=== PATIENT | female | born 1955 | race Caucasian/White ===

== ENCOUNTER 2017-09-08 13:26 | Inpatient (IN) | payer MEDICARE, OTHER ==
--- NOTE | 2017-09-08 14:20 | ER Document Report ---
ED Medical Screen (RME) - General Chief Complaint: Weakness Stated Complaint: POSSIBLE BUG BITE Time Seen by Provider: 09/08/17 14:12 Notes: 62-year-old female patient visiting from [place] who had a bilateral lung transplant done about a year ago. She noted after arriving here a tick on the arch of her right foot. Her removed it without much difficulty. Brief exam of the foot does not show any sign of retained mouth parts which would suggest the tick had not embedded very well. Late Saturday evening she began to feel poorly and by Saturday felt very weak, nauseous and chills. There is been no fever, no vomiting, but she has had dry heaves. I have greeted and performed a rapid initial assessment of this patient. A comprehensive ED assessment and evaluation of the patient, analysis of test results and completion of the medical decision making process will be conducted by additional ED providers. - Related Data Allergies/Adverse Reactions: Iodinated Contrast- Oral and IV Dye Allergy (Verified 09/08/17 13:31) NSAIDS (Non-Steroidal Anti-Inflamma Allergy (Verified 09/08/17 13:31) adhesive Adverse Reaction (Verified 09/08/17 13:31) kiwi Adverse Reaction (Verified 09/08/17 13:31) Physical Exam - Vital signs Vitals: Temp Pulse Resp BP Pulse Ox 99.5 F 70 16 113/60 97 09/08/17 13:49 09/08/17 13:49 09/08/17 13:49 09/08/17 13:49 09/08/17 13:49 Course - Vital Signs Vital signs: Temp Pulse Resp BP Pulse Ox 99.5 F 70 16 113/60 97 09/08/17 13:49 09/08/17 13:49 09/08/17 13:49 09/08/17 13:49 09/08/17 13:49
[2017-09-08 15:08] LABS: ABSOLUTE BASOPHILS # (AUTO) 0.1 10^3/uL (0.0-0.2); ABSOLUTE LYMPHOCYTES (AUTO) 0.5 10^3/uL (0.5-4.7); ABSOLUTE MONOCYTES (AUTO) 0.6 10^3/uL (0.1-1.4); ABSOLUTE NEUT (AUTO) 8.2 10^3/uL (1.7-8.2); BASOPHILS % (AUTO) 0.7 % (0-2); EOSINOPHILS % (AUTO) 0.2 % (0-6); HEMATOCRIT 31.1 % (36.0-47.0); HEMOGLOBIN 10.3 g/dL (12.0-15.5); LYMPHOCYTES % (AUTO) 5.5 % (13-45); MEAN CORPUSCULAR HEMOGLOBIN 26.9 pg (27.0-33.4); MEAN CORPUSCULAR HGB CONC 33.1 g/dL (32.0-36.0); MEAN CORPUSCULAR VOLUME 81 fl (80-97); MONOCYTES % (AUTO) 6.3 % (3-13); PLATELET COUNT 349 10^3/uL (150-450); RED BLOOD COUNT 3.84 10^6/uL (3.72-5.28); RED CELL DISTRIBUTION WIDTH 19.1 % (11.5-14.0); SEGMENTED NEUTROPHILS % (AUTO) 87.3 % (42-78); TOTAL CELLS COUNTED % (AUTO) 100 %; WHITE BLOOD COUNT 9.4 10^3/uL (4.0-10.5)
[2017-09-08 15:15] LABS: APPEARANCE,URINE SLIGHTLY-CLOUDY; BILIRUBIN,URINE NEGATIVE (NEGATIVE); COLOR,URINE YELLOW; GLUCOSE, URINE NEGATIVE (NEGATIVE); KETONES,URINE NEGATIVE (NEGATIVE); LEUKOCYTE ESTERASE,URINE TRACE (NEGATIVE); NITRITE,URINE NEGATIVE (NEGATIVE); PROTEIN,URINE NEGATIVE (NEGATIVE); URINE SPECIFIC GRAVITY 1.012; UROBILINOGEN,URINE NEGATIVE mg/dL (<2.0)
[2017-09-08 15:30] LABS: ALANINE AMINOTRANSFERASE 25 U/L (9-52); ALBUMIN 3.9 g/dL (3.5-5.0); ALKALINE PHOSPHATASE 122 U/L (38-126); ASPARTATE AMINO TRANSFERASE 34 U/L (14-36); BILIRUBIN,DIRECT 0.3 mg/dL (0.0-0.4); BILIRUBIN,TOTAL 0.8 mg/dL (0.2-1.3); BLOOD UREA NITROGEN 81 mg/dL (7-20); CHLORIDE 81 mmol/L (98-107); GLUCOSE 126 mg/dL (75-110); SODIUM 135.8 mmol/L (137-145); TOTAL PROTEIN 6.8 g/dL (6.3-8.2)
[2017-09-08 15:37] LABS: ANION GAP 16 (5-19); CARBON DIOXIDE 39 mmol/L (22-30)
[2017-09-08 15:39] LABS: POTASSIUM 2.5 mmol/L (3.6-5.0)
--- NOTE | 2017-09-08 16:18 | RADIOLOGY REPORT (SQ) ---
EXAM DESCRIPTION: CHEST 2 VIEWS COMPLETED DATE/TIME: 09/08/2017 4:09 pm REASON FOR STUDY: cough, chills, b/l lung transplant COMPARISON: None. EXAM PARAMETERS: NUMBER OF VIEWS: two views TECHNIQUE: Digital Frontal and Lateral radiographic views of the chest acquired. RADIATION DOSE: NA LIMITATIONS: none FINDINGS: LUNGS AND PLEURA: Left basilar atelectasis with possible left effusion. Right lung is victoria ar. MEDIASTINUM AND HILAR STRUCTURES: No masses or contour abnormalities. HEART AND VASCULAR STRUCTURES: Heart normal size. No evidence for failure. BONES: No acute findings. HARDWARE: Surgical hardware. OTHER: No other significant finding. IMPRESSION: Left basilar atelectasis with possible small left effusion. TECHNICAL DOCUMENTATION: JOB ID: [id number] [employer]- All Rights Reserved Reading location - IP/workstation name: [email or web address]
[2017-09-08 17:21] LABS: A TYPE INFLUENZA AG NEGATIVE (NEGATIVE); B INFLUENZA AG NEGATIVE (NEGATIVE)
[2017-09-08 17:32] LABS: CREATINE KINASE MB 0.62 ng/mL (<4.55)
[2017-09-08 17:33] LABS: ALANINE AMINOTRANSFERASE 24 U/L (9-52); ALKALINE PHOSPHATASE 126 U/L (38-126); ASPARTATE AMINO TRANSFERASE 32 U/L (14-36); BILIRUBIN,DIRECT 0.3 mg/dL (0.0-0.4); BILIRUBIN,TOTAL 0.7 mg/dL (0.2-1.3); BLOOD UREA NITROGEN 78 mg/dL (7-20); CHLORIDE 79 mmol/L (98-107); GLUCOSE 127 mg/dL (75-110); SODIUM 136.5 mmol/L (137-145); TOTAL PROTEIN 6.8 g/dL (6.3-8.2)
[2017-09-08 17:36] LABS: TROPONIN I 0.049 ng/mL
[2017-09-08 17:46] LABS: ANION GAP 14 (5-19)
[2017-09-08 17:47] LABS: POTASSIUM 2.3 mmol/L (3.6-5.0)
[2017-09-08 17:48] LABS: CARBON DIOXIDE 44 mmol/L (22-30)
[2017-09-08] MEDS ORDERED: POTASSIUM CHLORIDE 20 MEQ/15 ML UDCUP PO ONE (18:26)
--- NOTE | 2017-09-08 19:09 | EKG REPORT ---
SEVERITY:- ABNORMAL ECG - SINUS RHYTHM REPOL ABNRM SUGGESTS ISCHEMIA, ANT-LAT LEADS : Confirmed by: Bettie Son 08-Sep-2017 19:08:14
[2017-09-08] MEDS ORDERED: DOXYCYCLINE HYCLATE 100 MG TABLET PO ONE (19:23)
[2017-09-08] MEDS ORDERED: POTASSIUM CHLORIDE 10 MEQ TABLET.SA PO ONE ×2 (19:47→21:34)
--- NOTE | 2017-09-08 19:54 | ER Document Report ---
ED Dizziness/Weakness <HEMANTHERIC - Last Filed: 09/08/17 23:35> - Related Data Home Medications: everolimus, prednisone, tacrolimus, acyclovir, azithromycin, bactrim ds, tylenol, xanax, coreg, zyrtec, lexapro, folic acid, lasix, hctz, protonix, pravachol <ANTOINE BERNAL - Last Filed: 09/09/17 18:47> - General Chief Complaint: Weakness Stated Complaint: POSSIBLE BUG BITE Time Seen by Provider: 09/08/17 14:12 Notes: Patient is a 62-year-old female with a past medical history significant for bilateral lung transplant a year ago with previous moderate rejection on immunosuppression who presents emergency department with a chief complaint of weakness. Patient states that she drove down from [place] with her on Saturday and is feeling weak since Saturday. She admits to nausea. She otherwise denies any cough, shortness of breath, chest pain, vomiting, abdominal pain, diarrhea or constipation. Patient denies any fevers or chills. She also admits that she noticed a tick on the bottom of her foot on Saturday which her removed. Past medical history significant for history of COPD status post bilateral lung transplant, transplant history with previous moderate rejection in November that she was hospitalized for 3 days. Recently diagnosed with RSV in March and was hospitalized, chronic kidney disease, hypertension, GERD Past surgical history significant for bilateral lung transplant July 04, 2016, cholecystectomy, appendectomy Social history: Admits to former tobacco user, or alcohol and denies any drug use. Patient follows with [facility] and [facility]. ( ANTOINE BERNAL) - Related Data Allergies/Adverse Reactions: Iodinated Contrast- Oral and IV Dye Allergy (Verified 09/08/17 13:31) NSAIDS (Non-Steroidal Anti-Inflamma Allergy (Verified 09/08/17 13:31) adhesive Adverse Reaction (Verified 09/08/17 13:31) kiwi Adverse Reaction (Verified 09/08/17 13:31) Past Medical History - Social History Smoking Status: Former Smoker Chew tobacco use (# tins/day): No Frequency of alcohol use: None Drug Abuse: None Family History: Reviewed & Not Pertinent Patient has suicidal ideation: No Patient has homicidal ideation: No - Past Medical History Cardiac Medical History: Reports: Hx Hypertension Pulmonary Medical History: Reports: Hx COPD Renal/ Medical History: Denies: Hx Peritoneal Dialysis GI Medical History: Reports: Hx Gastroesophageal Reflux Disease Past Surgical History: Reports: Hx Appendectomy, Hx Cholecystectomy <ANTOINE BERNAL - Last Filed: 09/09/17 18:47> Review of Systems - Review of Systems Constitutional: See HPI EENT: No symptoms reported Cardiovascular: No symptoms reported Respiratory: No symptoms reported Gastrointestinal: See HPI Musculoskeletal: No symptoms reported Neurological/Psychological: See HPI -: Yes All other systems reviewed and negative <ANTOINE BERNAL - Last Filed: 09/09/17 18:47> Physical Exam <ERIC ERAZO - Last Filed: 09/08/17 23:35> <ANTOINE BERNAL - Last Filed: 09/09/17 18:47> - Vital signs Vitals: Temp Pulse Resp BP Pulse Ox 99.5 F 70 16 113/60 97 09/08/17 13:49 09/08/17 13:49 09/08/17 13:49 09/08/17 13:49 09/08/17 13:49 - Notes Notes: PHYSICAL EXAM GENERAL: Alert, interacts well. HEAD: Normocephalic, atraumatic. EYES: Pupils equal, round, and reactive to light. Extraocular movements intact. ENT: Oral mucosa moist, tongue midline. NECK: Full range of motion. Supple. Trachea midline. LUNGS: Clear to auscultation bilaterally, no wheezes, rales, or rhonchi. No respiratory distress. HEART: Regular rate and rhythm. No murmurs, gallops, or rubs. ABDOMEN: Soft, nondistended, nontender. No guarding, rebound, or rigidity.. Bowel sounds present in all 4 quadrants. EXTREMITIES: Moves all 4 extremities spontaneously. No edema, radial and dorsalis pedis pulses 2/4 bilaterally. No cyanosis. NEUROLOGICAL: Alert and oriented x4. Normal speech. PSYCH: Normal affect, normal mood. SKIN: Warm, dry, normal turgor. No rashes or lesions noted. (ANTOINE BERNAL) Course - Laboratory Result Diagrams: 09/08/17 14:50 09/08/17 20:50 - Diagnostic Test Radiology reviewed: Reports reviewed <ERIC ERAZO - Last Filed: 09/08/17 23:35> - Laboratory Result Diagrams: 09/09/17 04:30 09/09/17 11:10 <ANTOINE BERNAL - Last Filed: 09/09/17 18:47> - Re-evaluation Re-evalutation: 09/08/17 22:[address] Menendez regarding patient's repeat troponin, EKG and potassium level. Recommends consultation with hospitalist for possible observation admission given continued T-wave inversion in anterior leads. 09/08/17 22:30 consulted with hospitalist for possible admission, will come by to evaluate pt 09/08/17 23:35 Dr. Romero does agree to accept patient has a telemetry observation admission. Dr. Romero advised that we do have a copy of patient's most recent chemistry panel as well as last EKG for comparison. (ERIC ERAZO) 09/08/17 19:00 Patient is a 62-year-old female who presents to the emergency department the chief complaint of weakness. Physical exam without any evidence of tick bite, rash. Will treat with prophylactic dose of 200 mg of Doxy. Patient had labs ordered up in triage. Her CBC is stable without evidence of leukocytosis or significant anemia. Patient's chemistry does reveal severe hypokalemia at 2.5. There is no evidence of EKG changes concerning for hypokalemia with U waves. She does have evidence of anterolateral ST depressions. She denies any chest pain. Her troponin was sent at this time which was 0.049. Patient resting comfortably and continues to deny any chest pain. A repeat chemistry was completed to verify hypokalemia which came back at 2.3. Patient was given a p.o. dose of oral potassium given that the department is out of IV potassium. Patient tolerated well without any associated vomiting. Case was reviewed with patient's lung transplant team at [facility] who recommends that as long as she looks well without EKG changes and is tolerating p.o. that she can be discharged and follow-up in the ER for repeat labs tomorrow. We were able to review her labs done at [facility] on a phone vince which showed that hypokalemia is new with a recent potassium 3.5 within the past 7 days. She also has stable kidney function. Her most recent kidney function was consistent with her labs today both on September 02 and September 06. reviewed the case with supervising physician the emergency department Dr. Menendez as well as the patient to agree with plan. Care is been signed over to night nurse practitioner Hemanth who will trend repeat troponin in continue to give her oral replacement of potassium. (ANTOINE BERNAL) - Vital Signs Vital signs: Temp Pulse Resp BP Pulse Ox 98.6 F 67 16 111/51 L 99 09/09/17 14:33 09/09/17 14:33 09/09/17 14:33 09/09/17 11:23 09/09/17 14:33 - Laboratory Laboratory results interpreted by me: 09/08/17 09/08/17 09/08/17 14:50 14:50 14:50 Hgb 10.3 L Hct 31.1 L MCH 26.9 L RDW 19.1 H Seg Neutrophils % 87.3 H Lymphocytes % 5.5 L Sodium 135.8 L Potassium 2.5 L* Chloride 81 L Carbon Dioxide 39 H BUN 81 H Creatinine 3.56 H Est GFR ( Amer) 16 L Est GFR (Non-Af Amer) 13 L Glucose 126 H Ur Leukocyte Esterase TRACE H 09/08/17 09/08/17 17:09 20:50 Hgb Hct MCH RDW Seg Neutrophils % Lymphocytes % Sodium 136.5 L Potassium 2.3 L* 2.7 L* Chloride 79 L Carbon Dioxide 44 H* BUN 78 H Creatinine 3.59 H Est GFR ( Amer) 16 L Est GFR (Non-Af Amer) 13 L Glucose 127 H Ur Leukocyte Esterase 09/08/17 23:36 Labs- Entire Visit 09/08/17 09/08/17 09/08/17 14:50 14:50 14:50 WBC 9.4 RBC 3.84 Hgb 10.3 L Hct 31.1 L MCV 81 MCH 26.9 L MCHC 33.1 RDW 19.1 H Plt Count 349 Seg Neutrophils % 87.3 H Lymphocytes % 5.5 L Monocytes % 6.3 Eosinophils % 0.2 Basophils % 0.7 Absolute Neutrophils 8.2 Absolute Lymphocytes 0.5 Absolute Monocytes 0.6 Absolute Eosinophils 0.0 Absolute Basophils 0.1 Sodium 135.8 L Potassium 2.5 L* Chloride 81 L Carbon Dioxide 39 H Anion Gap 16 BUN 81 H Creatinine 3.56 H Est GFR ( Amer) 16 L Est GFR (Non-Af Amer) 13 L Glucose 126 H Calcium 9.0 Magnesium Total Bilirubin 0.8 Direct Bilirubin 0.3 Neonat Total Bilirubin Not Reportable Neonat Direct Bilirubin Not Reportable Neonat Indirect Bili Not Reportable AST 34 ALT 25 Alkaline Phosphatase 122 Creatine Kinase CK-MB (CK-2) Troponin I Total Protein 6.8 Albumin 3.9 Urine Color YELLOW Urine Appearance SLIGHTLY-CLOUDY Urine pH 5.0 Ur Specific [place] 1.012 Urine Protein NEGATIVE Urine Glucose (UA) NEGATIVE Urine Ketones NEGATIVE Urine Blood NEGATIVE Urine Nitrite NEGATIVE Urine Bilirubin NEGATIVE Urine Urobilinogen NEGATIVE Ur Leukocyte Esterase TRACE H Urine WBC (Auto) 5 Urine RBC (Auto) 1 U Hyaline Cast (Auto) 45 Urine Bacteria (Auto) TRACE Squamous Epi Cells Auto 3 Urine Mucus (Auto) RARE Urine Ascorbic Acid NEGATIVE Influenza A (Rapid) Influenza B (Rapid) 09/08/17 09/08/17 09/08/17 14:50 14:50 16:40 WBC RBC Hgb Hct MCV MCH MCHC RDW Plt Count Seg Neutrophils % Lymphocytes % Monocytes % Eosinophils % Basophils % Absolute Neutrophils Absolute Lymphocytes Absolute Monocytes Absolute Eosinophils Absolute Basophils Sodium Potassium Chloride Carbon Dioxide Anion Gap BUN Creatinine Est GFR ( Amer) Est GFR (Non-Af Amer) Glucose Calcium Magnesium Total Bilirubin Direct Bilirubin Neonat Total Bilirubin Neonat Direct Bilirubin Neonat Indirect Bili AST ALT Alkaline Phosphatase Creatine Kinase 103 CK-MB (CK-2) 0.62 Troponin I 0.049 Total Protein Albumin Urine Color Urine Appearance Urine pH Ur Specific [place] Urine Protein Urine Glucose (UA) Urine Ketones Urine Blood Urine Nitrite Urine Bilirubin Urine Urobilinogen Ur Leukocyte Esterase Urine WBC (Auto) Urine RBC (Auto) U Hyaline Cast (Auto) Urine Bacteria (Auto) Squamous Epi Cells Auto Urine Mucus (Auto) Urine Ascorbic Acid Influenza A (Rapid) NEGATIVE Influenza B (Rapid) NEGATIVE 09/08/17 09/08/17 09/08/17 17:09 17:09 20:50 WBC RBC Hgb Hct MCV MCH MCHC RDW Plt Count Seg Neutrophils % Lymphocytes % Monocytes % Eosinophils % Basophils % Absolute Neutrophils Absolute Lymphocytes Absolute Monocytes Absolute Eosinophils Absolute Basophils Sodium 136.5 L Potassium 2.3 L* Chloride 79 L Carbon Dioxide 44 H* Anion Gap 14 BUN 78 H Creatinine 3.59 H Est GFR ( Amer) 16 L Est GFR (Non-Af Amer) 13 L Glucose 127 H Calcium 9.0 Magnesium 2.2 Total Bilirubin 0.7 Direct Bilirubin 0.3 Neonat Total Bilirubin Not Reportable Neonat Direct Bilirubin Not Reportable Neonat Indirect Bili Not Reportable AST 32 ALT 24 Alkaline Phosphatase 126 Creatine Kinase CK-MB (CK-2) Troponin I 0.041 Total Protein 6.8 Albumin 4.0 Urine Color Urine Appearance Urine pH Ur Specific [place] Urine Protein Urine Glucose (UA) Urine Ketones Urine Blood Urine Nitrite Urine Bilirubin Urine Urobilinogen Ur Leukocyte Esterase Urine WBC (Auto) Urine RBC (Auto) U Hyaline Cast (Auto) Urine Bacteria (Auto) Squamous Epi Cells Auto Urine Mucus (Auto) Urine Ascorbic Acid Influenza A (Rapid) Influenza B (Rapid) 09/08/17 20:50 WBC RBC Hgb Hct MCV MCH MCHC RDW Plt Count Seg Neutrophils % Lymphocytes % Monocytes % Eosinophils % Basophils % Absolute Neutrophils Absolute Lymphocytes Absolute Monocytes Absolute Eosinophils Absolute Basophils Sodium Potassium 2.7 L* Chloride Carbon Dioxide Anion Gap BUN Creatinine Est GFR ( Amer) Est GFR (Non-Af Amer) Glucose Calcium Magnesium Total Bilirubin Direct Bilirubin Neonat Total Bilirubin Neonat Direct Bilirubin Neonat Indirect Bili AST ALT Alkaline Phosphatase Creatine Kinase CK-MB (CK-2) Troponin I Total Protein Albumin Urine Color Urine Appearance Urine pH Ur Specific [place] Urine Protein Urine Glucose (UA) Urine Ketones Urine Blood Urine Nitrite Urine Bilirubin Urine Urobilinogen Ur Leukocyte Esterase Urine WBC (Auto) Urine RBC (Auto) U Hyaline Cast (Auto) Urine Bacteria (Auto) Squamous Epi Cells Auto Urine Mucus (Auto) Urine Ascorbic Acid Influenza A (Rapid) Influenza B (Rapid) (ERIC ERAZO) Discharge - Discharge Admitting Provider: Hospitalist Unit Admitted: Telemetry <ERIC ERAZO - Last Filed: 09/08/17 23:35> <ANTOINE BERNAL - Last Filed: 09/09/17 18:47> - Discharge Clinical Impression: Hypokalemia, Abnormal EKG, Nausea Condition: Fair Disposition: ADMITTED OBSERVATION
--- NOTE | 2017-09-08 22:31 | EKG REPORT ---
SEVERITY:- ABNORMAL ECG - SINUS RHYTHM NONSPECIFIC INTRAVENTRICULAR CONDUCTION DELAY BORDERLINE ST DEPRESSION, ANTERIOR LEADS : Confirmed by: Bettie Son 08-Sep-2017 22:31:11
[2017-09-08] MEDS ORDERED: ONDANSETRON 4 MG TAB.RAPDIS PO ONE (22:42)
[2017-09-08] MEDS ORDERED: DIPHENHYDRAMINE HCL 50 MG/ML VIAL IV ONE (22:51)
[2017-09-08] MEDS ORDERED: ACETAMINOPHEN 325 MG TABLET PO PRN (23:28)
[2017-09-08] MEDS ORDERED: PROMETHAZINE HCL INJ 25 MG/1 ML VIAL IV PRN (23:28)
[2017-09-08] MEDS ORDERED: POTASSI CL 40 MEQ/NS 1L 1,000 ML IV PRN (23:36)
--- NOTE | 2017-09-09 00:38 | PDOC H&P ---
History of Present Illness Admission Date/PCP: 09/08/17 23:41 History of Present Illness: LEIGHTON ALSTON is a 62 year old female patient with past medical history of end-stage renal disease secondary to COPD and status post bilateral lung transplant which was done in 2017 at [facility]. Patient has also end- stage renal disease and currently she is in.transplant waiting list. She presented with 3 days history of generalized body weakness and nausea. Her blood work shows hypokalemia with potassium of 2.3. Patient denies vomiting, diarrhea, abdominal pain, fever, chills, chest pain, cough or urinary complaints. Her EKG shows nonspecific T-wave inversions which are new compared to previous EKG. Past Medical History Cardiac Medical History: Reports: Hypertension Pulmonary Medical History: Reports: Chronic Obstructive Pulmonary Disease (COPD) GI Medical History: Reports: Gastroesophageal Reflux Disease Past Surgical History Past Surgical History: Reports: Appendectomy, Cholecystectomy, Other - Bilateral lung transplant Social History Smoking Status: Former Smoker - Advance Directive Resuscitation Status: Full Code Family History Family History: Malignancy Parental Family History Reviewed: Yes Children Family History Reviewed: Yes Sibling(s) Family History Reviewed.: Yes Medication/Allergy Home Medications: Potassium Chloride 40 meq PO DAILY 7 Days tablet.er 09/08/17 Allergies/Adverse Reactions: Iodinated Contrast- Oral and IV Dye Allergy (Verified 09/08/17 13:31) NSAIDS (Non-Steroidal Anti-Inflamma Allergy (Verified 09/08/17 13:31) adhesive Adverse Reaction (Verified 09/08/17 13:31) kiwi Adverse Reaction (Verified 09/08/17 13:31) Review of Systems Constitutional: PRESENT: as per HPI Eyes: PRESENT: as per HPI Cardiovascular: PRESENT: as per HPI Respiratory: PRESENT: as per HPI Gastrointestinal: PRESENT: as per HPI Neurological: PRESENT: as per HPI Psychiatric: PRESENT: as per HPI Physical Exam Vital Signs: Temp Pulse Resp BP Pulse Ox 99.5 F 70 14 118/60 100 09/08/17 13:49 09/08/17 13:49 09/08/17 21:07 09/08/17 21:07 09/08/17 21:07 Results Impressions: Chest X-Ray 09/08/17 15:50 IMPRESSION: Left basilar atelectasis with possible small left effusion. Assessment & Plan - Diagnosis (1) Hypokalemia Is this a current diagnosis for this admission?: Yes Plan: I will replete her potassium. BMP in a.m. (2) End stage renal disease Is this a current diagnosis for this admission?: Yes Plan: Follow-up with her dairy chemist (3) Abnormal EKG Is this a current diagnosis for this admission?: Yes Plan: Her troponin is negative. Consult cardiology (4) Hyperlipidemia Qualifiers: Hyperlipidemia type: unspecified Qualified Code(s): E78.5 - Hyperlipidemia , unspecified Is this a current diagnosis for this admission?: Yes Plan: Continue her home medications - Time Time Spent: 30 to 50 Minutes - Inpatient Certification Medical Necessity: Need For IV Fluids
[2017-09-09] MEDS ORDERED: ONDANSETRON HCL INJ/PF 4 MG/2 ML SDV IV PRN (02:18)
[2017-09-09 02:31] LABS: ARTERIAL BLOOD BASE EXCESS 10.9 mmol/L; ARTERIAL BLOOD H2CO3 1.26 mmol/L (1.05-1.35); ARTERIAL BLOOD HCO3 34.5 mmol/L (20-26); ARTERIAL BLOOD O2 SATURATION 85.4 % (94-98); ARTERIAL BLOOD PCO2 41.8 mmHg (35-45); ARTERIAL BLOOD PH 7.54 (7.35-7.45); ARTERIAL BLOOD PO2 44.4 mmHg (80-100); ARTERIAL BLOOD TOTAL CO2 35.8 mmol/L (21-25)
[2017-09-09 02:34] LABS: ARTERIAL BLOOD FIO2 21%
[2017-09-09 05:33] LABS: ABSOLUTE BASOPHILS # (AUTO) 0.1 10^3/uL (0.0-0.2); ABSOLUTE EOSINOPHILS # (AUTO) 0.1 10^3/uL (0.0-0.6); ABSOLUTE LYMPHOCYTES (AUTO) 0.9 10^3/uL (0.5-4.7); BASOPHILS % (AUTO) 0.9 % (0-2); HEMATOCRIT 24.9 % (36.0-47.0); HEMOGLOBIN 8.4 g/dL (12.0-15.5); LYMPHOCYTES % (AUTO) 14.7 % (13-45); MEAN CORPUSCULAR HEMOGLOBIN 27.6 pg (27.0-33.4); MEAN CORPUSCULAR HGB CONC 33.9 g/dL (32.0-36.0); MEAN CORPUSCULAR VOLUME 82 fl (80-97); MONOCYTES % (AUTO) 16.1 % (3-13); PLATELET COUNT 253 10^3/uL (150-450); RED BLOOD COUNT 3.05 10^6/uL (3.72-5.28); RED CELL DISTRIBUTION WIDTH 18.8 % (11.5-14.0); SEGMENTED NEUTROPHILS % (AUTO) 67.3 % (42-78); TOTAL CELLS COUNTED % (AUTO) 100 %
[2017-09-09 05:57] LABS: ANION GAP 11 (5-19); BLOOD UREA NITROGEN 86 mg/dL (7-20); CALCIUM 8.4 mg/dL (8.4-10.2); CARBON DIOXIDE 37 mmol/L (22-30); CHLORIDE 89 mmol/L (98-107); GLUCOSE 162 mg/dL (75-110); SODIUM 136.9 mmol/L (137-145)
[2017-09-09] MEDS ORDERED: LANSOPRAZOLE 30 MG TAB.RAP.DR PO SCH (06:00)
[2017-09-09 06:15] LABS: POTASSIUM 2.5 mmol/L (3.6-5.0)
[2017-09-09] MEDS ORDERED: POTASSI CL 40 MEQ/NS 1L 1,000 ML IV PRN (06:30)
[2017-09-09] MEDS: HEPARIN SOD (PORCINE) 5,000 UNIT/ML 1 ML SYRINGE SUBCUT SCH ×2 (06:57→13:11)
[2017-09-09] MEDS ORDERED: POTASSIUM CHLORIDE 10 MEQ TABLET.SA PO ONE (07:00)
--- NOTE | 2017-09-09 09:19 | PDOC PROGRESS REPORT ---
Subjective Progress Note for:: 09/09/17 Subjective:: Patient is seen resting in bed. Her is at the bedside. She denies any chest pain, shortness of breath or dyspnea. She denies any nausea, vomiting, diarrhea or abdominal pain. Her appetite is improved. She is drinking well. She denies any significant arthralgias or myalgias. Remaining review of systems are negative. Reason For Visit: HYPOKALEMIA Physical Exam Vital Signs: Temp Pulse Resp BP Pulse Ox 99.7 F 59 L 18 97/77 L 100 09/09/17 01:25 09/09/17 07:00 09/09/17 01:25 09/09/17 01:25 09/09/17 01:25 Intake & Output 09/08/17 09/09/17 09/10/17 06:59 06:59 06:59 Intake Total 1222 Balance 1222 General appearance: PRESENT: no acute distress, well-developed, well-nourished Head exam: PRESENT: atraumatic, normocephalic Eye exam: PRESENT: conjunctiva pink, EOMI, PERRLA. ABSENT: scleral icterus Ear exam: PRESENT: normal external ear exam Mouth exam: PRESENT: moist, tongue midline Neck exam: ABSENT: carotid bruit, JVD, lymphadenopathy, thyromegaly Respiratory exam: PRESENT: clear to auscultation alma. ABSENT: rales, rhonchi, wheezes Cardiovascular exam: PRESENT: RRR. ABSENT: diastolic murmur, rubs, systolic murmur Pulses: PRESENT: normal dorsalis pedis pul Vascular exam: PRESENT: normal capillary refill GI/Abdominal exam: PRESENT: normal bowel sounds, soft. ABSENT: distended, guarding, mass, organolmegaly, rebound, tenderness Rectal exam: PRESENT: deferred Extremities exam: PRESENT: full ROM. ABSENT: calf tenderness, clubbing, pedal edema Neurological exam: PRESENT: alert, awake, oriented to person, oriented to place , oriented to time, oriented to situation, CN II-XII grossly intact. ABSENT: motor sensory deficit Psychiatric exam: PRESENT: appropriate affect, normal mood. ABSENT: homicidal ideation, suicidal ideation Skin exam: PRESENT: dry, intact, warm. ABSENT: cyanosis, rash Results Laboratory Results: 09/09/17 04:30 09/09/17 04:30 0509/09/17 09/09/17 23:45 02:19 04:30 WBC 6.0 RBC 3.05 L Hgb 8.4 L Hct 24.9 L MCV 82 MCH 27.6 MCHC 33.9 RDW 18.8 H Plt Count 253 Seg Neutrophils % 67.3 Lymphocytes % 14.7 Monocytes % 16.1 H Eosinophils % 1.0 Basophils % 0.9 Absolute Neutrophils 4.0 Absolute Lymphocytes 0.9 Absolute Monocytes 1.0 Absolute Eosinophils 0.1 Absolute Basophils 0.1 Carbonic Acid 1.26 HCO3/H2CO3 Ratio 27:1 ABG pH 7.54 H ABG pCO2 41.8 ABG pO2 44.4 L ABG HCO3 34.5 H ABG O2 Saturation 85.4 L ABG Base Excess 10.9 FiO2 21% Sodium Potassium 2.5 L* Chloride Carbon Dioxide Anion Gap BUN Creatinine Est GFR ( Amer) Est GFR (Non-Af Amer) Glucose Calcium 09/09/17 04:30 WBC RBC Hgb Hct MCV MCH MCHC RDW Plt Count Seg Neutrophils % Lymphocytes % Monocytes % Eosinophils % Basophils % Absolute Neutrophils Absolute Lymphocytes Absolute Monocytes Absolute Eosinophils Absolute Basophils Carbonic Acid HCO3/H2CO3 Ratio ABG pH ABG pCO2 ABG pO2 ABG HCO3 ABG O2 Saturation ABG Base Excess FiO2 Sodium 136.9 L Potassium 2.5 L* Chloride 89 L Carbon Dioxide 37 H Anion Gap 11 BUN 86 H Creatinine 3.32 H Est GFR ( Amer) 17 L Est GFR (Non-Af Amer) 14 L Glucose 162 H Calcium 8.4 09/08/17 23:45 Troponin I 0.040 Impressions: Chest X-Ray 09/08/17 15:50 IMPRESSION: Left basilar atelectasis with possible small left effusion. Assessment & Plan - Diagnosis (1) Hypokalemia Is this a current diagnosis for this admission?: Yes Plan: Replete with oral and IV potassium, recheck at 10 AM (2) Abnormal EKG Is this a current diagnosis for this admission?: Yes Plan: Cardiology has been consulted. Most likely secondary to hypokalemia. She denies any cardiac history. She denies any chest pain, shortness of breath or any other anginal equivalents (3) End stage renal disease Is this a current diagnosis for this admission?: Yes (4) Nausea Is this a current diagnosis for this admission?: Yes Plan: Resolved presently (5) Lung transplant recipient Is this a current diagnosis for this admission?: Yes Plan: Patient received bilateral lung transplant 2016. Continue antirejection medications - Time Time Spent with patient: 15-24 minutes Medications reviewed and adjusted accordingly: Yes Anticipated discharge: Home Within: within 24 hours
[2017-09-09] MEDS ORDERED: DOCUSATE SODIUM 100 MG CAPSULE PO SCH (10:00)
[2017-09-09 11:58] LABS: BLOOD UREA NITROGEN 76 mg/dL (7-20); CALCIUM 8.6 mg/dL (8.4-10.2); CHLORIDE 93 mmol/L (98-107); GLUCOSE 144 mg/dL (75-110)
[2017-09-09 12:05] LABS: ANION GAP 9 (5-19)
[2017-09-09 12:09] LABS: CARBON DIOXIDE 39 mmol/L (22-30); POTASSIUM 3.6 mmol/L (3.6-5.0)
[2017-09-09 12:27] VITALS: BP 111/51
[2017-09-09] MEDS ORDERED: ALPRAZOLAM 0.25 MG TABLET PO PRN (13:52)
[2017-09-09] MEDS ORDERED: AZITHROMYCIN 250 MG TABLET PO SCH (14:00)
--- NOTE | 2017-09-09 14:45 | PDOC DISCHARGE SUMMARY ---
General - Admit/Disc Date/PCP Admission Date/Primary Care Provider: 09/08/17 23:41 Discharge Date: 09/09/17 - Discharge Diagnosis (1) Hypokalemia Is this a current diagnosis for this admission?: Yes Summary: Repleted and normal. Will hold diuretics until Wed (2) Abnormal EKG Is this a current diagnosis for this admission?: Yes Summary: Secondary to hypokalemia (3) End stage renal disease Is this a current diagnosis for this admission?: Yes Summary: Improved with IV hydration. At her baseline (4) Nausea Is this a current diagnosis for this admission?: Yes Summary: Resolved (5) Lung transplant recipient Is this a current diagnosis for this admission?: Yes Summary: Continue prograf - Additional Information Resuscitation Status: Full Code Discharge Diet: Cardiac, Diabetic Discharge Activity: Activity As Tolerated, Balance Activity w/Rest Home Medications: Acetaminophen [Tylenol 325 mg Tablet] 650 mg PO Q6HP PRN 09/09/17 Acyclovir [Zovirax 200 mg Capsule] 200 mg PO TID 09/09/17 Alprazolam [Xanax 0.25 mg Tablet] 0.25 mg PO DAILYP PRN 09/09/17 Carvedilol [Coreg 25 mg Tablet] 50 mg PO BIDBS 09/09/17 Cetirizine HCl [Zyrtec 10 mg Tablet] 10 mg PO DAILY 09/09/17 Escitalopram Oxalate [Lexapro 10 mg Tablet] 10 mg PO DAILY 09/09/17 Everolimus [Zortress] 0.25 mg PO QPM 09/09/17 Everolimus [Zortress] 0.5 mg PO DAILY 09/09/17 Folic Acid [Folvite 1 mg Tablet] 1 mg PO DAILY 09/09/17 Furosemide [Lasix 40 mg Tablet] 40 mg PO DAILY #0 09/09/17 Hydrochlorothiazide [Hydrodiuril 25 mg Tablet] 50 mg PO DAILY #0 09/09/17 Pantoprazole Sodium [Protonix] 40 mg PO DAILY 09/09/17 Pravastatin Sodium [Pravachol] 20 mg PO DAILY 09/09/17 Prednisone [Deltasone 5 mg Tablet] 5 mg PO [id number] 09/09/17 Tacrolimus [Prograf] 0.5 mg PO QPM 09/09/17 Tacrolimus [Prograf] 1 mg PO DAILY 09/09/17 History of Present Illness Patient complains of: Weakness and nausea History of Present Illness: LEIGHTON ALSTON is a 62 year old female Hospital Course Hospital Course: LEIGHTON ALSTON is a 62 year old female patient with past medical history of end-stage renal disease secondary to COPD and status post bilateral lung transplant which was done in 2017 at [facility]. Patient has also end- stage renal disease and currently she is in.transplant waiting list. She presented with 3 days history of generalized body weakness and nausea. Her blood work shows hypokalemia with potassium of 2.3. Patient denies vomiting, diarrhea, abdominal pain, fever, chills, chest pain, cough or urinary complaints. Her EKG shows nonspecific T-wave inversions which are new compared to previous EKG Her potassium was repleted with oral and IV therapy. Her repeat potassium came back at 3.6. Her appetite is improved. She is eating and drinking without any difficulty. We have held her oral diuretic therapy and have encouraged her to do so until Saturday. Encouraged her to continue to attempt to consume potassium rich foods taking diuretics. She will follow up with her primary care provider when she returns to [place]. Physical Exam Vital Signs: Temp Pulse Resp BP Pulse Ox 98.6 F 67 16 111/51 L 99 09/09/17 11:23 09/09/17 14:00 09/09/17 11:23 09/09/17 11:23 09/09/17 11:23 Intake & Output 09/08/17 09/09/17 09/10/17 06:59 06:59 06:59 Intake Total 1222 Balance 1222 General appearance: PRESENT: no acute distress, well-developed, well-nourished Head exam: PRESENT: atraumatic, normocephalic Eye exam: PRESENT: conjunctiva pink, EOMI, PERRLA. ABSENT: scleral icterus Ear exam: PRESENT: normal external ear exam Mouth exam: PRESENT: moist, tongue midline Neck exam: ABSENT: carotid bruit, JVD, lymphadenopathy, thyromegaly Respiratory exam: PRESENT: clear to auscultation alma. ABSENT: rales, rhonchi, wheezes Cardiovascular exam: PRESENT: RRR. ABSENT: diastolic murmur, rubs, systolic murmur Pulses: PRESENT: normal dorsalis pedis pul Vascular exam: PRESENT: normal capillary refill GI/Abdominal exam: PRESENT: normal bowel sounds, soft. ABSENT: distended, guarding, mass, organolmegaly, rebound, tenderness Rectal exam: PRESENT: deferred Extremities exam: PRESENT: full ROM. ABSENT: calf tenderness, clubbing, pedal edema Musculoskeletal exam: PRESENT: ambulatory, full ROM, normal inspection Neurological exam: PRESENT: alert, awake, oriented to person, oriented to place , oriented to time, oriented to situation, CN II-XII grossly intact. ABSENT: motor sensory deficit Psychiatric exam: PRESENT: appropriate affect, normal mood. ABSENT: homicidal ideation, suicidal ideation Skin exam: PRESENT: dry, intact, warm. ABSENT: cyanosis, rash Results Laboratory Results: 09/09/17 04:30 09/09/17 11:10 09/08/17 09/09/17 09/09/17 23:45 02:19 04:30 WBC 6.0 RBC 3.05 L Hgb 8.4 L Hct 24.9 L MCV 82 MCH 27.6 MCHC 33.9 RDW 18.8 H Plt Count 253 Seg Neutrophils % 67.3 Lymphocytes % 14.7 Monocytes % 16.1 H Eosinophils % 1.0 Basophils % 0.9 Absolute Neutrophils 4.0 Absolute Lymphocytes 0.9 Absolute Monocytes 1.0 Absolute Eosinophils 0.1 Absolute Basophils 0.1 Carbonic Acid 1.26 HCO3/H2CO3 Ratio 27:1 ABG pH 7.54 H ABG pCO2 41.8 ABG pO2 44.4 L ABG HCO3 34.5 H ABG O2 Saturation 85.4 L ABG Base Excess 10.9 FiO2 21% Sodium Potassium 2.5 L* Chloride Carbon Dioxide Anion Gap BUN Creatinine Est GFR ( Amer) Est GFR (Non-Af Amer) Glucose Calcium Magnesium 09/09/17 09/09/17 04:30 11:10 WBC RBC Hgb Hct MCV MCH MCHC RDW Plt Count Seg Neutrophils % Lymphocytes % Monocytes % Eosinophils % Basophils % Absolute Neutrophils Absolute Lymphocytes Absolute Monocytes Absolute Eosinophils Absolute Basophils Carbonic Acid HCO3/H2CO3 Ratio ABG pH ABG pCO2 ABG pO2 ABG HCO3 ABG O2 Saturation ABG Base Excess FiO2 Sodium 136.9 L 141.0 Potassium 2.5 L* 3.6 D Chloride 89 L 93 L Carbon Dioxide 37 H 39 H Anion Gap 11 9 BUN 86 H 76 H Creatinine 3.32 H 3.23 H Est GFR ( Amer) 17 L 18 L Est GFR (Non-Af Amer) 14 L 14 L Glucose 162 H 144 H Calcium 8.4 8.6 Magnesium 2.1 09/08/17 23:45 Troponin I 0.040 Impressions: Chest X-Ray 09/08/17 15:50 IMPRESSION: Left basilar atelectasis with possible small left effusion. Qualifiers - * PATIENT BEING DISCHARGED WITH ANY OF THE FOLLOWING DIAGNOSIS: No Plan Discharge Plan: Home with family. She will follow up with primary care provider once she returns home Time Spent: Less than 30 Minutes
[2017-09-09] MEDS ORDERED: TACROLIMUS ANHYDROUS 1 MG CAPSULE PO ONE (15:00)
[2017-09-09] MEDS ORDERED: ACYCLOVIR 200 MG CAPSULE PO ONE (15:00)
[2017-09-09] MEDS ORDERED: PROMETHAZINE HCL INJ 25 MG/1 ML VIAL IV PRN (15:00)
[2017-09-09] MEDS ORDERED: CARVEDILOL 12.5 MG TABLET PO SCH (17:00)
[2017-09-09] MEDS ORDERED: (PENDING PHARMACY ID) (Carvedilol [Coreg 25 Mg Tablet] 50 MG) PO SCH (17:00)
[2017-09-09] MEDS ORDERED: EVEROLIMUS 0.25 MG PO SCH (18:00)
[2017-09-09] MEDS ORDERED: TACROLIMUS ANHYDROUS 0.5 MG CAPSULE PO SCH (18:00)
--- NOTE | 2017-09-09 20:01 | PDOC CONSULTATION ---
Consultation Consult Date: 09/09/17 Attending physician:: SILVIO RAYA Consult reason:: Abnormal EKG History of Present Illness Admission Date/PCP: 09/08/17 23:41 Patient complains of: Generalized weakness History of Present Illness: LEIGHTON ALSTON is a 62 year old female patient with past medical history of end-stage renal disease secondary to COPD and status post bilateral lung transplant which was done in 2017 at [facility]. Patient has also end-stage renal disease and currently she is in.transplant waiting list. She presented with 3 days history of generalized body weakness and nausea. Her blood work shows hypokalemia with potassium of 2.3. Patient denies vomiting, diarrhea, abdominal pain, fever, chills, chest pain, cough or urinary complaints. Her EKG shows nonspecific T-wave inversions which are new compared to previous EKG. Patient gives history of rheumatic fever but no history of valvular heart disease. Patient also denied any history of coronary artery disease. Patient is status post lung transplant about a year ago. Currently on antirejection therapy. Patient claims that she has got chronic kidney disease. Patient denied any chest pain. Patient cardiac enzymes have come back relatively unremarkable. Patient EKG however it is abnormal. Past Medical History Cardiac Medical History: Reports: Hypertension Pulmonary Medical History: Reports: Chronic Obstructive Pulmonary Disease (COPD) GI Medical History: Reports: Gastroesophageal Reflux Disease Past Surgical History Past Surgical History: Reports: Appendectomy, Cholecystectomy, Other - Bilateral lung transplant Social History Information Source: Patient Smoking Status: Former Smoker Last Time Smoked: 05/06/2015 Frequency of Alcohol Use: None Hx Recreational Drug Use: No Drugs: None Hx Prescription Drug Abuse: No - Advance Directive Resuscitation Status: Full Code Family History Family History: Reviewed & Not Pertinent Parental Family History Reviewed: Yes Children Family History Reviewed: Yes Sibling(s) Family History Reviewed.: Yes Medication/Allergy Home Medications: Acetaminophen [Tylenol 325 mg Tablet] 650 mg PO Q6HP PRN 09/09/17 Acyclovir [Zovirax 200 mg Capsule] 200 mg PO TID 09/09/17 Alprazolam [Xanax 0.25 mg Tablet] 0.25 mg PO DAILYP PRN 09/09/17 Carvedilol [Coreg 25 mg Tablet] 50 mg PO BIDBS 09/09/17 Cetirizine HCl [Zyrtec 10 mg Tablet] 10 mg PO DAILY 09/09/17 Escitalopram Oxalate [Lexapro 10 mg Tablet] 10 mg PO DAILY 09/09/17 Everolimus [Zortress] 0.25 mg PO QPM 09/09/17 Everolimus [Zortress] 0.5 mg PO DAILY 09/09/17 Folic Acid [Folvite 1 mg Tablet] 1 mg PO DAILY 09/09/17 Furosemide [Lasix 40 mg Tablet] 40 mg PO DAILY #0 09/09/17 Hydrochlorothiazide [Hydrodiuril 25 mg Tablet] 50 mg PO DAILY #0 09/09/17 Pantoprazole Sodium [Protonix] 40 mg PO DAILY 09/09/17 Pravastatin Sodium [Pravachol] 20 mg PO DAILY 09/09/17 Prednisone [Deltasone 5 mg Tablet] 5 mg PO WBRKFST 09/09/17 Tacrolimus [Prograf] 0.5 mg PO QPM 09/09/17 Tacrolimus [Prograf] 1 mg PO DAILY 09/09/17 Allergies/Adverse Reactions: Iodinated Contrast- Oral and IV Dye Allergy (Verified 09/08/17 13:31) NSAIDS (Non-Steroidal Anti-Inflamma Allergy (Verified 09/08/17 13:31) adhesive Adverse Reaction (Verified 09/08/17 13:31) kiwi Adverse Reaction (Verified 09/08/17 13:31) Review of Systems Review of Systems: Please see history of present illness and past medical history as wall. Constitutional: No fever or chills reported. Generalized fatigue and tiredness. Head : No recent chronic headaches, recent head injury. Eyes: No recent eye pain, diplopia, redness, discharge, acute visual changes. Ears: No recent chronic ear pain, acute hearing loss, ear discharge. Oral cavity: No recent ulcerations, bleeding, oral cavity discomfort. Neck: No recent acute neck pain reported. Hematologic: No recent easy bruising or bleeding. Lymphatic: No recent lymph node enlargement reported. Cardiovascular system review: See history of present illness. Patient denied any chest pain, sustained palpitations, syncope or near syncope. Respiratory system review: No hemoptysis or blood clots in the lungs reported. Mild Shortness of breath on exertion. Gastrointestinal system review: Negative for any recent acute hematemesis, melena. Genitourinary system review: No recent acute or chronic hematuria, flank pain, UTI etc. reported. Skin system review: Negative for any recent abnormal bruising, no rash, no pruritus reported. Neurologic: No prior history of strokes, mini strokes, seizure disorder. Psychologic: No history of major psychosis or major depression reported. Musculoskeletal: Minor aches and pains reported. No acute joint swelling reported. Endocrine: No recent polyuria, polydipsia, recent heat or cold intolerance. Physical Exam Vital Signs: Temp Pulse Resp BP Pulse Ox 98.6 F 67 16 111/51 L 99 09/09/17 14:33 09/09/17 14:33 09/09/17 14:33 09/09/17 11:23 09/09/17 14:33 Intake & Output 09/08/17 09/09/17 09/10/17 06:59 06:59 06:59 Intake Total 1222 Balance 1222 Exam: GENERAL: well-nourished and in no acute distress. Alert and oriented x3 HEAD: Atraumatic, normocephalic. EYES: Pupils equal round and reactive to light, extraocular movements intact, sclera anicteric, conjunctiva are normal. ENT: TMs normal, nares patent, oropharynx clear without exudates. Moist mucous membranes. No oral ulcerations or bleeding gums noted NECK: supple without lymphadenopathy. Trachea is central. No cervical or axillary lymphadenopathy noted. Carotids are 2+, JVD WNL LUNGS: Respiration seems nonlabored, no significant accessory muscle action noted. Breath sounds clear to auscultation bilaterally and equal noted. No wheezes rales or rhonchi noted. No significant dullness noted on percussion. CHEST: Palpation of the chest wall shows no significant chest wall tenderness. 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 ABDOMEN: Soft, no significant tenderness appreciated, normoactive bowel sounds. No guarding, no rebound. No rigidity noted . No masses appreciated. EXTREMITIES: Pedal pulses are 1-2+, no calf tenderness noted. No clubbing or cyanosis. Trace pedal edema noted NEUROLOGICAL: Focused neurological exam showed no significant neurologic deficit. Normal speech, no focal weakness appreciated. PSYCH: Normal mood, normal affect. Judgment and insight within normal limits. SKIN: No significant ecchymosis, skin is noted to be warm. MUSCULOSKELETAL EXAM: No significant acute joint swelling noted. Results Laboratory Results: 09/09/17 04:30 09/09/17 11:10 09/08/17 09/09/17 09/09/17 23:45 02:19 04:30 WBC 6.0 RBC 3.05 L Hgb 8.4 L Hct 24.9 L MCV 82 MCH 27.6 MCHC 33.9 RDW 18.8 H Plt Count 253 Seg Neutrophils % 67.3 Lymphocytes % 14.7 Monocytes % 16.1 H Eosinophils % 1.0 Basophils % 0.9 Absolute Neutrophils 4.0 Absolute Lymphocytes 0.9 Absolute Monocytes 1.0 Absolute Eosinophils 0.1 Absolute Basophils 0.1 Carbonic Acid 1.26 HCO3/H2CO3 Ratio 27:1 ABG pH 7.54 H ABG pCO2 41.8 ABG pO2 44.4 L ABG HCO3 34.5 H ABG O2 Saturation 85.4 L ABG Base Excess 10.9 FiO2 21% Sodium Potassium 2.5 L* Chloride Carbon Dioxide Anion Gap BUN Creatinine Est GFR ( Amer) Est GFR (Non-Af Amer) Glucose Calcium Magnesium 09/09/17 09/09/17 04:30 11:10 WBC RBC Hgb Hct MCV MCH MCHC RDW Plt Count Seg Neutrophils % Lymphocytes % Monocytes % Eosinophils % Basophils % Absolute Neutrophils Absolute Lymphocytes Absolute Monocytes Absolute Eosinophils Absolute Basophils Carbonic Acid HCO3/H2CO3 Ratio ABG pH ABG pCO2 ABG pO2 ABG HCO3 ABG O2 Saturation ABG Base Excess FiO2 Sodium 136.9 L 141.0 Potassium 2.5 L* 3.6 D Chloride 89 L 93 L Carbon Dioxide 37 H 39 H Anion Gap 11 9 BUN 86 H 76 H Creatinine 3.32 H 3.23 H Est GFR ( Amer) 17 L 18 L Est GFR (Non-Af Amer) 14 L 14 L Glucose 162 H 144 H Calcium 8.4 8.6 Magnesium 2.1 09/08/17 23:45 Troponin I 0.040 EKG Comments: Sinus rhythm, ST segment changes noted multiple leads consistent with LVH. Cannot rule out ischemia. Impressions: Chest X-Ray 09/08/17 15:50 IMPRESSION: Left basilar atelectasis with possible small left effusion. Assessment & Plan - Diagnosis (1) Chronic kidney disease (CKD) Qualifiers: Chronic kidney disease stage: stage 4 (severe) Qualified Code(s): N18.4 - Chronic kidney disease, stage 4 (severe) Is this a current diagnosis for this admission?: Yes (2) Abnormal EKG Is this a current diagnosis for this admission?: Yes (3) Hyperlipidemia Qualifiers: Hyperlipidemia type: unspecified Qualified Code(s): E78.5 - Hyperlipidemia , unspecified Is this a current diagnosis for this admission?: Yes (4) Lung transplant recipient Is this a current diagnosis for this admission?: Yes - Notes Notes: Abnormal electrocardiogram: This is of some concern. Do not have prior EKGs to compare with. Patient however without chest pain. Cardiac enzymes are relatively unremarkable. At this point have ordered a 2D echo to look for any LVH as cause of abnormal EKG. Patient will benefit from a nuclear stress test. This will be scheduled once echocardiogram is reviewed. At this point continue with correction of electrolyte abnormalities. Hyperlipidemia: Patient will benefit from statin therapy. Chronic kidney disease: Agree with slow hydration. May consult with sustainability communicator. Lung transplant with significant: Transplant recipient tend to have accelerated atherosclerosis. However at this point patient has abnormal EKG only without any symptoms of dyspnea or any other ischemia equivalent symptom. 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 Patient to report any further problems. - Time Time Spent: 30 to 50 Minutes - CODE STATUS was discussed, patient remains full code. Surrogate decision-maker patient's . Multiple medical problems were addressed. More than 50% of the time spent coordinating care, discussing management plans with involved caregivers. Management plans discussed with involved personnels. Medical decision making was of moderate to high complexity , patient's has multiple comorbidities. Medications reviewed and adjusted accordingly: Yes
[2017-09-09] MEDS ORDERED: ACYCLOVIR 200 MG CAPSULE PO SCH (22:00)
[2017-09-10] MEDS ORDERED: PREDNISONE 5 MG TABLET PO SCH (08:00)
[2017-09-10] MEDS ORDERED: ESCITALOPRAM OXALATE 10 MG TABLET PO SCH (10:00)
[2017-09-10] MEDS ORDERED: CETIRIZINE 10 MG TABLET PO SCH (10:00)
[2017-09-10] MEDS ORDERED: FOLIC ACID 1 MG TABLET PO SCH (10:00)
[2017-09-10] MEDS ORDERED: EVEROLIMUS 0.5 MG PO SCH (10:00)
[2017-09-10] MEDS ORDERED: TACROLIMUS ANHYDROUS 1 MG CAPSULE PO SCH (10:00)
[2017-09-12 10:39] LABS: LYME IGG P18 AB Absent (.); LYME IGG P23 AB Absent (.); LYME IGG P28 AB Absent (.); LYME IGG P30 AB Absent (.); LYME IGG P39 AB Absent (.); LYME IGG P41 AB Absent (.); LYME IGG P45 AB Absent (.); LYME IGG P58 AB Absent (.); LYME IGG P66 AB Absent (.); LYME IGG P93 AB Absent (.); LYME IGM P23 AB Absent (.); LYME IGM P39 AB Absent (.); LYME IGM P41 AB Absent (.)
[2017-09-12 11:07] LABS: LYME DISEASE IGM AB 1.39 index (0.00-0.79); LYME IGM WB INTERP Negative (.)
== END 2017-09-09 16:03 | disposition home or self-care (01) | DRG 640 ==
LOC: ER 13:26 → OBSVTOIN 23:41 → EH 23:41 → 3N 09-09 01:11
PROVIDERS: ADMIT Internal Medicine; ATTEND Internal Medicine
DX: E87.6 Hypokalemia (principal); N18.6 End stage renal disease; I12.0 Hypertensive chronic kidney disease with stage 5 chronic kidney disease or end stage renal disease; Z94.2 Lung transplant status; J44.9 Chronic obstructive pulmonary disease, unspecified; K21.9 Gastro-esophageal reflux disease without esophagitis; E78.5 Hyperlipidemia, unspecified; R94.31 Abnormal electrocardiogram [ECG] [EKG]; R11.0 Nausea; Z90.49 Acquired absence of other specified parts of digestive tract; Z87.891 Personal history of nicotine dependence; Z91.041 Radiographic dye allergy status; Z88.6 Allergy status to analgesic agent
CPT/HCPCS: 36415; 71046; 80048; 80053; 81001; 82550; 82553; 82803; 83735; 84132; 84484; 85025; 86617; 86618; 87040; 87804; 93005; 93010; 96365; 96375; 99285; J1200; J1644; J2405; J3480; S0119